=== PATIENT | female | born 2000 | race Hispanic/Latino ===

== ENCOUNTER 2023-10-13 08:53 | Emergency (ER) | payer MEDICAID ==
[~2023-10-13] VITALS: Ht 167.6 cm; Wt 127.0 kg
[2023-10-13] VITALS (8 sets, daily range): BP systolic 139–158; BP diastolic 83–98
[2023-10-13] MEDS ORDERED: AMOXICILLIN500 M2 PO (10:03)
== END 2023-10-13 10:19 | disposition home or self-care (01) ==
LOC: ED 08:53
DX: J02.9 Acute pharyngitis, unspecified (principal); Z20.822 Contact with and (suspected) exposure to COVID-19

== ENCOUNTER 2023-11-19 11:35 | Emergency (ER) | payer SELFPAY ==
[~2023-11-19] VITALS: Ht 167.6 cm; Wt 158.0 kg
[~2023-11-19 11:35] MED LIST: AMOXICILLIN500 M2 PO
[2023-11-19 11:43] VITALS: BP 145/87
[2023-11-19 11:57] VITALS: BP 151/87
[2023-11-19 12:00] VITALS: BP 140/79
[2023-11-19 12:31] VITALS: BP 136/67
[2023-11-19 12:33] VITALS: BP 136/67
== END 2023-11-19 12:35 | disposition home or self-care (01) | DRG 563 ==
LOC: ED 11:35
DX: S39.012A Strain of muscle, fascia and tendon of lower back, initial encounter (principal); W07.XXXA Fall from chair, initial encounter; Y92.89 Other specified places as the place of occurrence of the external cause; Y99.0 Civilian activity done for income or pay